=== PATIENT | male | born 1965 | race African-American/Black ===

== ENCOUNTER 2024-02-24 08:28 | Emergency (ER) | payer SELFPAY ==
[2024-02-24] MEDS ORDERED: NA CHLORIDE 0.9% 50 ML ONE (08:57)
[2024-02-24] MEDS ORDERED: TDAP (DIPHTH,PERTUSS(ACELL),TET VAC) 0.5 ML VIAL IMVAC ONE (08:57)
[2024-02-24] MEDS ORDERED: CEFAZOLIN SODIUM 1 GM/VIAL ONE (08:57)
--- NOTE | 2024-02-24 09:25 | RAD REPORT ---
EXAM: Hand Left 3 View HISTORY: Fingers injury with saw COMPARISON: None FINDINGS: Multiple radiopaque foreign bodies either within the soft tissues or located superficially at the sec ond and fourth distal phalanges. There is a soft tissue laceration. No fractures identified, however. No malalignment. IMPRESSION: Radiopaque foreign bodies at the second and fourth digits with lacerations. No fractures identified.
[2024-02-24] MEDS ORDERED: LIDOCAINE 2% MPF 5 ML VIAL ONE (09:50)
--- NOTE | 2024-02-24 12:12 | EDPHYS ---
Physician Documentation [facility] Name: Adilson Vivar Age: 59 yrs Sex: Male : 1965 Arrival Date: 02/24/2024 Time: 08:28 Bed 11 Private MD: ED Physician Zoran Howe HPI: 02/23 11:57 This 59 yrs old Male presents to ER via Ambulatory with complaints of Laceration To bo1 Hand. 11:57 The patient has a laceration occurred at work, The injury was Pt was operating a bo1 band-saw and the saw blade cut two fingers of his non-dominant hand (left). The laceration(s) is(are) located on the left hand, 2nd digit and 4th digit. Onset: The symptoms/episode began/occurred suddenly, just prior to arrival. Associated signs and symptoms: Pertinent positives: heavy bleeding, From the 4th digit. Pt was cutting metal - "iron". Historical: - Allergies: 08:51 No Known Allergies; jp4 - Home Meds: 08:51 None [Active]; jp4 - PMHx: 08:51 None; jp4 - PSHx: 08:51 None; jp4 - Immunization history:: Adult Immunizations unknown, Last tetanus immunization: unknown, Patient states that he is unsure of his last tetanus shot. - Infectious Disease History:: Denies. - Social history:: Smoking status: Patient denies any tobacco usage or history of. 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 - Family history:: not pertinent. - Code Status:: Full code. ROS: 11:59 Constitutional: Negative for fever, chills, and weight loss bo1 11:59 Constitutional: Negative for 11:59 Constitutional: Negative for chills, fever, 11:59 MS/extremity: Positive for injury or acute deformity, laceration, Cuts from the band-saw to the 2nd and 4th digit - left fingers, Exam: 12:00 Constitutional: This is a well developed, well nourished patient who is awake, alert, bo1 and in no acute distress. 12:00 Musculoskeletal/extremity: Extremities: all appear grossly normal, with no appreciated pain with palpation, Injury to the left fingers:, ROM: intact in all extremities, Circulation is intact in all extremities. Sensation intact. Tendon exam: specific tendon testing normal through active and passive range of motion 2nd digit: lateral jagged lac (1.5cm) into the DIP joint laterally. No exposed tendon. 4th digit: volar jagged lac (1.5cm) into the area distal to the DIP crease with a vessel bleeder. Vital Signs: 08:35 BP 177 / 94; Pulse 84; Resp 18; Temp 98.8; Pulse Ox 100% ; Weight 114.31 kg; Height 5 jp4 ft. 10 in. ; Pain 8/10; 08:35 Body Mass Index 36.16 (114.31 kg, 177.8 cm) [facility] 08:35 Pain Scale: Adult 4 NIH Stroke Scale Scores: 08:56 NIHSS Score: 0 4 Laceration: 12:04 Wound Repair of 1.5cm ( 0.6in ) subcutaneous laceration to left hand-2nd digit (4 bo1 sutures) and 4th digit (5 sutures) 4-0 Prolene used and 5-0 Prolene used. Profuse bleeding noted.. Distal neuro/vascular/tendon intact. Anesthesia: Local anesthetic administered with 10 mls of 2% lidocaine. Wound prep: Extensive cleansing, Wound irrigation, Copious irrigation, Suction irrigation with Yaunker and NS bottle. Skin closed with 4 4-0 Prolene using loose but hemostatic. Dressed with 4x4's, tube gauze, non-adherent dressing. Patient tolerated well. MDM: 08:31 Medical Screening Exam initiated bo1 12:08 Differential diagnosis: Cutaneous injury to both digits with the 2nd digit involving bo1 the DIP joint - Hand/Wrist surgery eval needed. Data reviewed: vital signs, radiologic studies, plain films. ED course: Pt has been treated and closed as best possible. Close F/U with Hand/Wrist surgery needed. Instructed to the pt and co-worker present. Hand/Wrist Surgery: [phone]. 02/23 08:37 Order name: Hand Left 3 View XRAY; Complete Time: 09:34 bo1 02/23 08:37 Order name: Saline Lock; Complete Time: 09:30 bo1 02/23 09:41 Order name: Wound Care; Complete Time: 11:40 bo1 Administered Medications: 09:29 Drug: ceFAZolin IVPB 1 grams 50 ml IVPB once over 30 mins Volume: 50 ml; Route: IVPB; aa5 Infused Over: 30 mins; Site: right hand; 10:00 Follow up: Response: No adverse reaction; IV Status: Completed infusion :29 CANCELLED (Physician Discretion): tetanus-diphtheria toxoid Adult 0.5 ml IM once aa07 30:29 Drug: Boostrix Tdap IM 0.5 ml IM once; as a single dose Route: IM; Site: right deltoid; aa5 09:45 Follow up: Response: No adverse reaction aa5 10:45 Drug: Lidocaine Infiltration (2 %) 5 mg Infiltration once {Note: administered by MD for aa5 laceration repair. .} Route: Infiltration; 12:38 Follow up: Response: No adverse reaction jl7 10:45 Drug: Lidocaine Infiltration (2 %) 5 ml 5 ml Infiltration once; to bedside {Note: aa5 administered by MD for laceration repair .} Volume: 5 ml; Route: Infiltration; 12:37 Follow up: Response: No adverse reaction jl7 Disposition Summary: 02/24/24 12:12 Discharge Ordered Notes: Location: Other bo1 Problem: new bo1 Symptoms: have improved bo1 Condition: Stable bo1 Diagnosis - Laceration with foreign body of left index finger without damage to nail bo1 Followup: bo1 - With: Private Physician - When: Upon discharge from the Emergency Department - Reason: Recheck today's complaints, Continuance of care Discharge Instructions: - Discharge Summary Sheet bo1 - Laceration Care, Adult, [id number] bo1 Forms: - Medication Reconciliation Form bo1 - Antibiotic Education bo1 - Prescription Opioid Use bo1 - Patient Portal Instructions bo1 - Leadership Thank You Letter bo1 Prescriptions: - ketorolac 10 mg Oral tablet - take 1 tablet ORAL route every 6 hours for 4 days; 20 tablet; Refills: 0, bo1 Product Selection Permitted - Cephalexin 500 mg Oral Capsule - take 1 capsule ORAL route every 8 hours for 10 days; 30 capsule; Refills: 0, bo1 Product Selection Permitted NIH Stroke Scale - NIH Stroke Score Date: 02/24/2024 Time: 08:56 Total Score = 0 10. Dysarthria (speech clarity - read or repeat words) - 0(Normal) 11. Extinction and Inattention (visual/tactile/auditory/spatial/personal) - 0(No abnormality) 1a. Level of Consciousness (LOC) - 0(Alert) 1b. Level of Consciousness (LOC) (Month \\T\\ Age) - 0(Both) 1c. LOC Commands (Open \\T\\ Closes Eyes/Corrections Lieutenant) - 0(Both) 2. Best Gaze (Lateral Gaze Paresis) - 0(Normal) 3. Visual Field Loss - 0(No visual loss) 4. Facial Palsy - 0(Normal) 5a. Left Arm: Motor (10-second hold) - 0(No drift) 5b. Right Arm: Motor (10-second hold) - 0(No drift) 6a. Left Leg: Motor (5-second hold - always test supine) - 0(No drift) 6b. Right Leg: Motor (5-second hold - always test supine) - 0(No drift) 7. Limb Ataxia (finger/nose \\T\\ heel/clark - test with eyes open) - 0(Absent) 8. Sensory Loss (pinprick arms/legs/face) - 0(Normal) 9. Best Language: Aphasia (description/naming/reading) - 0(No aphasia) Initials: jp4 Signatures: Dispatcher [employer] EDJaz Britton RN RN aa5 Kt Keith RN RN jp4 Zoran Howe MD MD bo1 Mali Juares RN jl7 Corrections: (The following items were deleted from the chart) 09:29 08:37 tetanus-diphtheria toxoid Adult 0.5 ml IM once ordered. lisbeth aa5 09:29 09:29 tetanus-diphtheria toxoid Adult 0.5 ml IM once ordered. aa5 aa5
--- NOTE | 2024-02-24 12:12 | ER ---
Nurse's Notes [facility] Name: Adilson Vivar Age: 59 yrs Sex: Male : 1965 Arrival Date: 02/24/2024 Time: 08:28 Bed 11 Private MD: Diagnosis: Laceration with foreign body of left index finger without damage to nail Presentation: 02/23 08:35 Complicating Factors: laceration to the digits to left hand - left ring and left jp4 middle. Possible involvement of pointer. Initial Sepsis Screen: Does the patient meet any 2 criteria? No. Patient's initial sepsis screen is negative. Does the patient have a suspected source of infection? No. Patient's initial sepsis screen is negative. Risk Assessment: Do you want to hurt yourself or someone else? Patient reports no desire to harm self or others. Onset of symptoms was February 24, 2024 at 08:00. 08:35 Acuity: ADRIÁN 3 4 08:45 Chief complaint: Patient states: Pt states at approximately 0800 this morning, was at [facility] work cutting metal with circular saw and accidentally cut his fingers. Patient arrived to the ER with left hand bandaged and bleeding controlled. Coronavirus screen: Vaccine status: Patient reports receiving the 2nd dose of the covid vaccine. Patient reports receiving the 1st dose of the Covid vaccine. Client denies travel out of the [place] in the last 14 days. Ebola Screen: Patient negative for fever greater than or equal to 101.5 degrees Fahrenheit, and additional compatible Ebola Virus Disease symptoms Patient denies exposure to infectious person. Patient denies travel to an Ebola-affected area in the 21 days before illness onset. No symptoms or risks identified at this time. 08:45 Method Of Arrival: Ambulatory 4 Triage Assessment: 08:51 General: Appears in no apparent distress. Behavior is calm, cooperative, Denies fever, 4 feeling ill, fatigue, chills. Pain: Complains of pain in left ring finger, palmar aspect of distal phalanx of left ring finger, palmar aspect of middle phalanx of left ring finger, left middle finger, palmar aspect of distal phalanx of left middle finger and palmar aspect of middle phalanx of left middle finger Pain does not radiate. Pain currently is 8 out of 10 on a pain scale. Quality of pain is described as dull, throbbing. EENT: No deficits noted. Neuro: No deficits noted. Level of Consciousness is awake, alert, obeys commands, Oriented to person, place, time, situation. Respiratory: No deficits noted. GI: No deficits noted. Derm: laceration to left digits - ring finger and middle finger. Musculoskeletal: no bone involvement with primary assessment. Injury Description: Laceration sustained to left ring finger, palmar aspect of distal phalanx of left ring finger, palmar aspect of middle phalanx of left ring finger, left middle finger, palmar aspect of distal phalanx of left middle finger and palmar aspect of middle phalanx of left middle finger is jagged, bleeding controlled was sustained less than 30 minutes ago. is bleeding moderately a dressing was applied. Historical: - Allergies: 08:51 No Known Allergies; jp4 - Home Meds: 08:51 None [Active]; jp4 - PMHx: 08:51 None; jp4 - PSHx: 08:51 None; jp4 - Immunization history:: Adult Immunizations unknown, Last tetanus immunization: unknown, Patient states that he is unsure of his last tetanus shot. - Infectious Disease History:: Denies. - Social history:: Smoking status: Patient denies any tobacco usage or history of. 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 - Family history:: not pertinent. - Code Status:: Full code. Screenin:56 [facility] ED Fall Risk Assessment (Adult) History of falling in the last 3 months, jp4 including since admission No falls in past 3 months (0 pts) Confusion or Disorientation No (0 pts) Intoxicated or Sedated No (0 pts) Impaired Gait No (0 pts) Mobility Assist Device Used No (0 pt) Altered Elimination No (0 pt) Score/Fall Risk Level 0 - 2 = Low Risk. Abuse screen: Denies threats or abuse. Denies injuries from another. Nutritional screening: No deficits noted. Tuberculosis screening: No symptoms or risk factors identified. Assessment: 08:40 General: Appears comfortable, Behavior is calm, cooperative. Pain: Complains of pain in aa5 left hand. Neuro: Level of Consciousness is awake, alert, obeys commands, Oriented to person, place, time, situation. Cardiovascular: Patient's skin is warm and dry. Respiratory: Airway is patent Respiratory effort is even, unlabored, Respiratory pattern is regular, symmetrical. GI: No signs and/or symptoms were reported involving the gastrointestinal system. : No signs and/or symptoms were reported regarding the genitourinary system. EENT: No signs and/or symptoms were reported regarding the EENT system. Derm: Skin is dry, Skin is normal, Skin temperature is warm. Musculoskeletal: Range of motion: intact in all extremities. Injury Description: Laceration sustained to dorsal aspect of distal phalanx of left index finger, palmar aspect of distal phalanx of left ring finger and palmar aspect of distal phalanx of left index finger is bleeding a dressing was applied. 08:56 Reassessment: No changes from previously documented assessment. General: Appears in no jp4 apparent distress. Behavior is calm, cooperative. 09:29 Neuro: Level of Consciousness is awake, alert, obeys commands, Oriented to person, aa5 place, time, situation. Respiratory: Airway is patent Respiratory effort is even, unlabored, Respiratory pattern is regular, symmetrical. Derm: Skin is dry, Skin is normal, Skin temperature is warm. 10:30 Reassessment: Soaked left hand in saline with Betadine per VO. . aa5 12:00 Reassessment: Patient appears in no apparent distress at this time. Patient and/or jl7 family updated on plan of care and expected duration. Pain level reassessed. Patient is alert, oriented x 3, equal unlabored respirations, skin warm/dry/pink. Vital Signs: 08:35 BP 177 / 94; Pulse 84; Resp 18; Temp 98.8; Pulse Ox 100% ; Weight 114.31 kg; Height 5 jp4 ft. 10 in. ; Pain 8/10; 08:35 Body Mass Index 36.16 (114.31 kg, 177.8 cm) jp4 08:35 Pain Scale: Adult jp4 NIH Stroke Scale Scores: 08:56 NIHSS Score: 0 jp4 ED Course: 08:30 Patient arrived in ED. mg5 08:31 Zoran Howe MD is Attending Physician. bo1 08:51 Triage completed. jp4 08:51 Arm band placed on right wrist. Patient placed in a hallway bed, moved to bed 11 upon jp4 examination. 08:56 Patient has correct armband on for positive identification. Placed in gown. Bed in low jp4 position. Call light in reach. Side rails up X 1. Provided Education on: Educated on treatment and wound dressing. . Door closed. Noise minimized. Lights dimmed. Warm blanket given. Pillow given. 09:00 Patient very pleasant. Visitor with patient is someone with employer. Requesting that jp4 we perform a drug and alcohol test. Explained that we were not able to provide the type of services that she was requesting, but that we would be able to do hospital version if the patient was in agreement. Employer is requesting a Breathalyzer , explained that we do not have that capability. 09:04 Hand Left 3 View XRAY Sent. jp4 09:06 Jaz Paulino, RN is Primary Nurse. aa5 09:09 Hand Left 3 View XRAY In Process Unspecified. EDMS 09:14 Inserted saline lock: 20 gauge in right hand, using aseptic technique. Flushed with 10 jp4 mL NS. 12:00 Assist provider with laceration repair on left hand that was between 7.6 to 12.5 cm jl7 using sutures. Set up tray. Performed by Zoran Howe MD Dressed with 4X4s, Patient tolerated well. 12:39 IV discontinued, intact, bleeding controlled, No redness/swelling at site. Pressure jl7 dressing applied. Administered Medications: 09:29 Drug: ceFAZolin IVPB 1 grams 50 ml IVPB once over 30 mins Volume: 50 ml; Route: IVPB; aa5 Infused Over: 30 mins; Site: right hand; 10:00 Follow up: Response: No adverse reaction; IV Status: Completed infusion aa5 :29 CANCELLED (Physician Discretion): tetanus-diphtheria toxoid Adult 0.5 ml IM once aa5 09:29 Drug: Boostrix Tdap IM 0.5 ml IM once; as a single dose Route: IM; Site: right deltoid; aa5 09:45 Follow up: Response: No adverse reaction aa5 10:45 Drug: Lidocaine Infiltration (2 %) 5 mg Infiltration once {Note: administered by for aa5 laceration repair. .} Route: Infiltration; 12:38 Follow up: Response: No adverse reaction jl7 10:45 Drug: Lidocaine Infiltration (2 %) 5 ml 5 ml Infiltration once; to bedside {Note: aa5 administered by MD for laceration repair .} Volume: 5 ml; Route: Infiltration; 12:37 Follow up: Response: No adverse reaction jl7 Medication: 12:00 Vaccine Information Statement (VIS) provided today. Questions and/or concerns jl7 addressed. VIS edition date: October 27, 2020. Outcome: 12:12 Discharge ordered by MD. bo1 12:39 Discharged to home ambulatory, jl7 12:39 Condition: stable 12:39 Discharge instructions given to patient, family, Instructed on discharge instructions, follow up and referral plans. medication usage, Demonstrated understanding of instructions, follow-up care, medications, Prescriptions given X 2, 12:39 Patient left the ED. jl7 NIH Stroke Scale - NIH Stroke Score Date: 02/24/2024 Time: 08:56 Total Score = 0 10. Dysarthria (speech clarity - read or repeat words) - 0(Normal) 11. Extinction and Inattention (visual/tactile/auditory/spatial/personal) - 0(No abnormality) 1a. Level of Consciousness (LOC) - 0(Alert) 1b. Level of Consciousness (LOC) (Month \T\ Age) - 0(Both) 1c. LOC Commands (Open \T\ Closes Eyes/Leather Staker) - 0(Both) 2. Best Gaze (Lateral Gaze Paresis) - 0(Normal) 3. Visual Field Loss - 0(No visual loss) 4. Facial Palsy - 0(Normal) 5a. Left Arm: Motor (10-second hold) - 0(No drift) 5b. Right Arm: Motor (10-second hold) - 0(No drift) 6a. Left Leg: Motor (5-second hold - always test supine) - 0(No drift) 6b. Right Leg: Motor (5-second hold - always test supine) - 0(No drift) 7. Limb Ataxia (finger/nose \T\ heel/clark - test with eyes open) - 0(Absent) 8. Sensory Loss (pinprick arms/legs/face) - 0(Normal) 9. Best Language: Aphasia (description/naming/reading) - 0(No aphasia) Initials: jp4 Signatures: Dispatcher [employer] EDJaz Britton RN RN [id number] Mali Juares RN RN jl7 Kt Keith RN RN jp4 Jaylin Najera mg5 Zoran Howe MD MD bo1 Corrections: (The following items were deleted from the chart) 11:13 10:45 Lidocaine Infiltration (2 %) 5 mg Infiltration aa5 aa5 19:19 11:30 Reassessment: Soaked left hand in saline with Betadine per VO. . aa5 aa5
[2024-02-24 12:52] VITALS: BP 177/94; TEMP 98.8; O2SAT 100
== END 2024-02-24 12:39 | disposition home or self-care (01) ==
LOC: ER 08:28
DX: S61.211A Laceration without foreign body of left index finger without damage to nail, initial encounter (principal)
CPT/HCPCS: 12041; 96365; 96372; 99285; J0690; J2003